=== PATIENT | female | born 1975 | race Caucasian/White ===

== ENCOUNTER 2018-01-03 10:03 | Emergency (ER) | payer MEDICARE, OTHER | END 2018-01-03 12:26 | disposition home or self-care (01) | LOC: FTE 12:26 | DX: S00.83XA Contusion of other part of head, initial encounter (principal); W18.09XA Striking against other object with subsequent fall, initial encounter; Y92.002 Bathroom of unspecified non-institutional (private) residence as the place of occurrence of the external cause | CPT/HCPCS: 70450; 72125; 99284-25 ==